=== PATIENT | female | born 1990 | race Caucasian/White ===

== ENCOUNTER 2018-06-29 16:10 | Inpatient (IN) | payer MEDICAID, OTHER ==
[2018-06-29] MEDS: morphine 4 MG/ML VIAL IV (17:43)
[2018-06-29] MEDS: ONDANSETRON 4 MG INJ IV (17:43)
[2018-06-29] MEDS: FAMOTIDINE 20 MG INJ IV (17:43)
[2018-06-29 17:47] LABS: ADD MAN DIFF? NO
[2018-06-29 17:56] LABS: WHITE BLOOD COUNT 5.5 10^3/ul (4.8-10.8)
[2018-06-29 17:56] LABS: BASOPHILS % 0.4 % (0.0-2.0); EOSINOPHILS % 0.5 % (0.0-7.0); HEMATOCRIT 41.7 % (37.0-47.0); HEMOGLOBIN 13.9 g/dl (12.0-16.0); LYMPHOCYTES # 1.7 10^3/ul (0.8-2.9); LYMPHOCYTES % 31.9 % (15.0-51.0); MEAN CORPUSCULAR HEMOGLOBIN 29.4 pg (29.0-33.0); MEAN CORPUSCULAR HGB CONC 33.3 g/dl (32.0-37.0); MEAN CORPUSCULAR VOLUME 88.3 fl (82.0-101.0); MEAN PLATELET VOLUME 9.3 fl (7.4-10.4); MONOCYTE # 0.6 10^3/ul (0.3-0.9); MONOCYTES % 11.7 % (0.0-11.0); NEUTROPHILS % 55.1 % (39.0-77.0); PLATELET COUNT 282 10^3/UL (140-415); RED BLOOD COUNT 4.72 10^6/ul (4.20-5.40); RED CELL DISTRIBUTION WIDTH 12.4 % (11.5-14.5)
[2018-06-29 18:00] LABS: ADD UMIC NO; UR ASCORBIC ACID NEGATIVE (NEGATIVE); UR BACTERIA FEW /HPF (NONE SEEN); UR BILIRUBIN (Dip) NEGATIVE (NEGATIVE); UR BLOOD (Dip) NEGATIVE (NEGATIVE); UR CLARITY SLIGHTLY CLOUDY (CLEAR); UR COLOR YELLOW (YELLOW); UR GLUCOSE (Dip) NEGATIVE (NEGATIVE); UR KETONES (Dip) 1+ mg/dL (NEGATIVE); UR LEUKOCYTE ESTERASE (Dip) NEGATIVE Leu/ul (NEGATIVE); UR NITRITE (Dip) NEGATIVE (NEGATIVE); UR RBC 6 /HPF (0-5); UR SQUAMOUS EPITHELIAL CELL MODERATE /HPF (FEW); UR TOTAL PROTEIN (Dip) NEGATIVE (NEGATIVE); UR UROBILINOGEN (Dip) NEGATIVE (NEGATIVE); UR WBC 2 /HPF (0-5)
[2018-06-29 18:21] LABS: ALANINE AMINOTRANSFERASE 546 IU/L (13-69); ALBUMIN 4.8 g/dl (3.3-4.9); ALBUMIN/GLOBULIN RATIO 1.06; ALKALINE PHOSPHATASE 98 IU/L (42-121); ANION GAP 13 (5-13); ASPARTATE AMINO TRANSFERASE 410 IU/L (15-46); BILIRUBIN,INDIRECT 0.4 mg/dl (0-1.1); BILIRUBIN,TOTAL 0.4 mg/dl (0.2-1.3); BLOOD UREA NITROGEN 9 mg/dl (7-20); CALCIUM 10.2 mg/dl (8.4-10.2); CARBON DIOXIDE 25 mmol/L (21-31); CHLORIDE 102 mmol/L (97-110); CREATININE 0.67 mg/dl (0.44-1.00); Estimated GFR > 60 mL/min (>60); GLUCOSE 89 mg/dl (70-220); LIPASE 82 U/L (23-300); POTASSIUM 4.3 mmol/L (3.5-5.1); SODIUM 140 mmol/L (135-144); TOTAL PROTEIN 9.3 g/dl (6.1-8.1)
[2018-06-29] MEDS: SOD CHLORIDE 0.9% 100 ML (19:58)
[2018-06-29] MEDS: IOHEXOL 300MG/ML 150 ML BTL (19:58)
[2018-06-29] MEDS: SOD CHLORIDE 0.9% 1,000 ML IV ×2 (21:03→23:41)
[2018-06-29] MEDS: morphine 2 MG INJ IV (21:03)
[2018-06-29] MEDS: PIPER-TAZO 3.375 GM IV (PMX) 100 ML IVPB (21:10)
[2018-06-29] MEDS ORDERED: KETOROLAC 30 MG INJ IV (21:30)
[2018-06-29] MEDS: CIPROFLOXACIN 400MG/D5W 200 ML IVPB (21:41)
[2018-06-29] MEDS ORDERED: BISACODYL (EC) 5 MG TAB PO (22:00)
[2018-06-29] MEDS ORDERED: NACL 0.9% 3 ML SYG IV (22:00)
[2018-06-29] MEDS ORDERED: DOCUSATE SODIUM 100 MG CAP PO (22:00)
[2018-06-29] MEDS: metroNIDAZOLE 500 MG/NS (PMX) 100 ML IVPB (23:42)
[2018-06-30] MEDS: SOD CHLORIDE 0.9% 1,000 ML IV ×2 (01:36→14:05)
[2018-06-30] MEDS: SUCRALFATE 1 GM TAB PO ×3 (01:36→17:03)
[2018-06-30] MEDS: ACETAMINOPHEN 325 MG TAB PO (01:36)
[2018-06-30 05:04] LABS: ADD MAN DIFF? NO; HAAIG REFLEX REFLEX FILED
[2018-06-30 05:07] LABS: BASOPHILS % 0.6 % (0.0-2.0); EOSINOPHILS # 0.1 10^3/ul (0.0-0.5); EOSINOPHILS % 1.9 % (0.0-7.0); HEMATOCRIT 37.7 % (37.0-47.0); HEMOGLOBIN 12.3 g/dl (12.0-16.0); LYMPHOCYTES # 1.9 10^3/ul (0.8-2.9); LYMPHOCYTES % 39.4 % (15.0-51.0); MEAN CORPUSCULAR HEMOGLOBIN 28.9 pg (29.0-33.0); MEAN CORPUSCULAR HGB CONC 32.6 g/dl (32.0-37.0); MEAN CORPUSCULAR VOLUME 88.7 fl (82.0-101.0); MEAN PLATELET VOLUME 9.1 fl (7.4-10.4); MONOCYTE # 0.8 10^3/ul (0.3-0.9); MONOCYTES % 16.8 % (0.0-11.0); NEUTROPHIL # 1.9 10^3/ul (1.6-7.5); NEUTROPHILS % 41.1 % (39.0-77.0); PLATELET COUNT 249 10^3/UL (140-415); RED BLOOD COUNT 4.25 10^6/ul (4.20-5.40); RED CELL DISTRIBUTION WIDTH 12.5 % (11.5-14.5)
[2018-06-30 05:07] LABS: WHITE BLOOD COUNT 4.7 10^3/ul (4.8-10.8)
[2018-06-30 05:26] LABS: ALANINE AMINOTRANSFERASE 431 IU/L (13-69); ALBUMIN 3.8 g/dl (3.3-4.9); ALBUMIN/GLOBULIN RATIO 1.11; ALKALINE PHOSPHATASE 73 IU/L (42-121); ANION GAP 8 (5-13); ASPARTATE AMINO TRANSFERASE 306 IU/L (15-46); BILIRUBIN,INDIRECT 0.4 mg/dl (0-1.1); BILIRUBIN,TOTAL 0.4 mg/dl (0.2-1.3); BLOOD UREA NITROGEN 8 mg/dl (7-20); CARBON DIOXIDE 25 mmol/L (21-31); CHLORIDE 107 mmol/L (97-110); CHOL/HDL RATIO 2.3 RATIO; CHOLESTEROL 124 mg/dl (100-200); CREATININE 0.67 mg/dl (0.44-1.00); Estimated GFR > 60 mL/min (>60); GLUCOSE 76 mg/dl (70-220); HDL CHOLESTEROL 53 mg/dl (33-83); LDL CHOLESTEROL,CALCULATED 58 mg/dl; MAGNESIUM 2.1 mg/dl (1.7-2.5); POTASSIUM 4.1 mmol/L (3.5-5.1); SODIUM 140 mmol/L (135-144); TOTAL PROTEIN 7.2 g/dl (6.1-8.1); TRIGLYCERIDES 63 mg/dl (0-149)
[2018-06-30] MEDS: metroNIDAZOLE 500 MG/NS (PMX) 100 ML IVPB ×5 (05:53→23:53)
[2018-06-30] MEDS: PANTOPRAZOLE 40 MG INJ IV (05:53)
[2018-06-30 05:57] LABS: HEMOGLOBIN A1C 4.9 % (0-5.9)
[2018-06-30] MEDS: HYDROmorphONE 0.5 MG/0.5 ML SYG IV ×3 (05:59→17:03)
[2018-06-30 07:19] LABS: HEPATITIS B SURFACE ANTIGEN NEGATIVE (NEGATIVE)
[2018-06-30 07:37] LABS: HEPATITIS B CORE ANTIBODY NEGATIVE (NEGATIVE); HEPATITIS C VIRAL ANTIBODY NEGATIVE (NEGATIVE)
[2018-06-30] MEDS: CIPROFLOXACIN 400MG/D5W 200 ML IVPB ×2 (08:06→21:10)
[2018-06-30] MEDS: ONDANSETRON 4 MG INJ IV ×3 (08:06→17:04)
[2018-06-30] MEDS: ASA/ACETAMINOPHEN/CAFF TAB PO (09:45)
[2018-07-01] MEDS: SUCRALFATE 1 GM TAB PO
[2018-07-01] MEDS: SOD CHLORIDE 0.9% 1,000 ML IV ×3 (00:55→19:20)
[2018-07-01 05:30] LABS: ADD MAN DIFF? NO
[2018-07-01 05:36] LABS: BASOPHIL # 0.1 10^3/ul (0.0-0.1); BASOPHILS % 1.2 % (0.0-2.0); EOSINOPHILS # 0.1 10^3/ul (0.0-0.5); EOSINOPHILS % 2.3 % (0.0-7.0); HEMATOCRIT 36.7 % (37.0-47.0); HEMOGLOBIN 12.4 g/dl (12.0-16.0); LYMPHOCYTES # 1.4 10^3/ul (0.8-2.9); LYMPHOCYTES % 32.6 % (15.0-51.0); MEAN CORPUSCULAR HEMOGLOBIN 29.3 pg (29.0-33.0); MEAN CORPUSCULAR HGB CONC 33.8 g/dl (32.0-37.0); MEAN CORPUSCULAR VOLUME 86.8 fl (82.0-101.0); MEAN PLATELET VOLUME 9.4 fl (7.4-10.4); MONOCYTE # 0.8 10^3/ul (0.3-0.9); MONOCYTES % 17.9 % (0.0-11.0); NEUTROPHILS % 45.8 % (39.0-77.0); PLATELET COUNT 238 10^3/UL (140-415); RED BLOOD COUNT 4.23 10^6/ul (4.20-5.40); RED CELL DISTRIBUTION WIDTH 12.6 % (11.5-14.5)
[2018-07-01 05:36] LABS: WHITE BLOOD COUNT 4.3 10^3/ul (4.8-10.8)
[2018-07-01] MEDS: metroNIDAZOLE 500 MG/NS (PMX) 100 ML IVPB ×3 (06:00→18:24)
[2018-07-01 06:01] LABS: PHOSPHORUS 4.4 mg/dl (2.5-4.9)
[2018-07-01 06:01] LABS: MAGNESIUM 1.8 mg/dl (1.7-2.5)
[2018-07-01 06:11] LABS: ALANINE AMINOTRANSFERASE 409 IU/L (13-69); ALBUMIN 3.6 g/dl (3.3-4.9); ALKALINE PHOSPHATASE 66 IU/L (42-121); ANION GAP 9 (5-13); ASPARTATE AMINO TRANSFERASE 255 IU/L (15-46); BILIRUBIN,INDIRECT 0.6 mg/dl (0-1.1); BILIRUBIN,TOTAL 0.6 mg/dl (0.2-1.3); BLOOD UREA NITROGEN 6 mg/dl (7-20); CALCIUM 8.9 mg/dl (8.4-10.2); CARBON DIOXIDE 25 mmol/L (21-31); CHLORIDE 105 mmol/L (97-110); CREATININE 0.69 mg/dl (0.44-1.00); Estimated GFR > 60 mL/min (>60); GLUCOSE 74 mg/dl (70-220); POTASSIUM 4.3 mmol/L (3.5-5.1); SODIUM 139 mmol/L (135-144); TOTAL PROTEIN 7.2 g/dl (6.1-8.1)
[2018-07-01] MEDS: PANTOPRAZOLE 40 MG INJ IV (06:15)
[2018-07-01] MEDS ORDERED: NEOSTIGMINE 10 MG INJ (07:00)
[2018-07-01] MEDS ORDERED: CIPRO 400 MG/200 ML D5W IVPB (07:00)
[2018-07-01] MEDS ORDERED: metroNIDAZOLE 500 MG/100 ML NS IVPB (07:00)
[2018-07-01] MEDS ORDERED: ALBUTEROL 0.083% (NEB) 2.5 MG/3 ML AMP HHN (07:30)
[2018-07-01] MEDS ORDERED: HYDROmorphONE 1 MG/5 ML IV SYRINGE IV (07:30)
[2018-07-01] MEDS ORDERED: GLYCOPYRROLATE 0.4 MG INJ (07:30)
[2018-07-01] MEDS ORDERED: EPHEDrine SULFATE 50 MG/5 ML SYG IV (07:30)
[2018-07-01] MEDS ORDERED: LABETALOL HCL 20MG INJ IV (07:30)
[2018-07-01] MEDS ORDERED: TRIMETHOBENZAMIDE 100 MG/ML VIAL IM (07:30)
[2018-07-01] MEDS ORDERED: ROCURONIUM 50 MG INJ (07:30)
[2018-07-01] MEDS ORDERED: DIPHENHYDRAMINE 50 MG INJ IV (07:30)
[2018-07-01] MEDS ORDERED: CEFAZOLIN 1 GM INJ (07:30)
[2018-07-01] MEDS ORDERED: MIDAZOLAM 1 MG/ML 2 ML INJ IV (07:30)
[2018-07-01] MEDS ORDERED: FENTAnyl 50 MCG/ML VIAL IV ×3 (07:30)
[2018-07-01] MEDS ORDERED: hydrALAzine 20 MG INJ IV (07:30)
[2018-07-01] MEDS ORDERED: PROPOFOL 20 ML (07:30)
[2018-07-01] MEDS ORDERED: OXYCODONE/ACETAMINOPHEN (5/325) TAB PO ×2 (07:30)
[2018-07-01] MEDS ORDERED: IPRATROPIUM (NEB) 0.5 MG/2.5 ML AMP HHN (07:30)
[2018-07-01] MEDS ORDERED: FENTAnyl 50 MCG/ML VIAL ×2 (07:32→08:11)
[2018-07-01] MEDS ORDERED: MIDAZOLAM 1 MG/ML 2 ML INJ (07:32)
[2018-07-01] MEDS ORDERED: ONDANSETRON 4 MG INJ (07:33)
[2018-07-01] MEDS ORDERED: DEXAMETHASONE 4 MG/ML 5 ML INJ (07:33)
[2018-07-01] MEDS ORDERED: ROPIVACAINE 0.5 % 30 ML VIAL (07:33)
[2018-07-01] MEDS: BUPIVACAINE 0.5%/EPI (SDV) 30 ML INJ (08:19)
[2018-07-01] MEDS: LIDOCAINE 2% (MDV) 20 ML INJ (08:20)
[2018-07-01] MEDS: CIPROFLOXACIN 400MG/D5W 200 ML IVPB ×2 (09:00→21:37)
[2018-07-01] MEDS: ONDANSETRON 4 MG INJ IV ×2 (09:40→12:13)
[2018-07-01] MEDS: MEPERIDINE 25 MG INJ IV (09:40)
[2018-07-01] MEDS: HYDROmorphONE 1 MG/5 ML IV SYRINGE IV ×2 (09:41→09:49)
[2018-07-01] MEDS: D5W-0.45 NACL + KCL 20 MEQ 1,000 ML IV ×2 (10:57→22:01)
[2018-07-01] MEDS: IBUPROFEN 600 MG TAB PO ×2 (12:13→18:24)
[2018-07-01] MEDS: HYDROmorphONE 0.5 MG/0.5 ML SYG IV ×3 (14:16→22:26)
[2018-07-01] MEDS: ACETAMINOPHEN 325 MG TAB PO (16:03)
[2018-07-02] MEDS: metroNIDAZOLE 500 MG/NS (PMX) 100 ML IVPB ×3 (00:57→12:00)
[2018-07-02] MEDS: morphine 4 MG/ML VIAL IV ×3 (01:10→11:02)
[2018-07-02] MEDS: SOD CHLORIDE 0.9% 1,000 ML IV ×2 (01:10→12:00)
[2018-07-02] MEDS: IBUPROFEN 600 MG TAB PO (01:11)
[2018-07-02 05:17] LABS: ADD MAN DIFF? NO
[2018-07-02 05:22] LABS: BASOPHILS % 0.2 % (0.0-2.0); HEMATOCRIT 35.5 % (37.0-47.0); HEMOGLOBIN 12.2 g/dl (12.0-16.0); LYMPHOCYTES # 1.8 10^3/ul (0.8-2.9); LYMPHOCYTES % 14.4 % (15.0-51.0); MEAN CORPUSCULAR HEMOGLOBIN 29.8 pg (29.0-33.0); MEAN CORPUSCULAR HGB CONC 34.4 g/dl (32.0-37.0); MEAN CORPUSCULAR VOLUME 86.8 fl (82.0-101.0); MEAN PLATELET VOLUME 9.6 fl (7.4-10.4); MONOCYTE # 1.4 10^3/ul (0.3-0.9); MONOCYTES % 11.3 % (0.0-11.0); NEUTROPHIL # 9.4 10^3/ul (1.6-7.5); NEUTROPHILS % 73.5 % (39.0-77.0); PLATELET COUNT 239 10^3/UL (140-415); RED BLOOD COUNT 4.09 10^6/ul (4.20-5.40); RED CELL DISTRIBUTION WIDTH 12.6 % (11.5-14.5)
[2018-07-02 05:22] LABS: WHITE BLOOD COUNT 12.7 10^3/ul (4.8-10.8)
[2018-07-02] MEDS: D5W-0.45 NACL + KCL 20 MEQ 1,000 ML IV ×2 (05:39→15:47)
[2018-07-02] MEDS: PANTOPRAZOLE 40 MG INJ IV (05:39)
[2018-07-02 06:06] LABS: PHOSPHORUS 3.9 mg/dl (2.5-4.9)
[2018-07-02 06:06] LABS: MAGNESIUM 1.8 mg/dl (1.7-2.5)
[2018-07-02 06:18] LABS: ALANINE AMINOTRANSFERASE 329 IU/L (13-69); ALBUMIN 3.3 g/dl (3.3-4.9); ALKALINE PHOSPHATASE 59 IU/L (42-121); ANION GAP 8 (5-13); ASPARTATE AMINO TRANSFERASE 168 IU/L (15-46); BILIRUBIN,INDIRECT 0.2 mg/dl (0-1.1); BILIRUBIN,TOTAL 0.2 mg/dl (0.2-1.3); BLOOD UREA NITROGEN 6 mg/dl (7-20); CARBON DIOXIDE 25 mmol/L (21-31); CHLORIDE 107 mmol/L (97-110); CREATININE 0.69 mg/dl (0.44-1.00); Estimated GFR > 60 mL/min (>60); GLUCOSE 140 mg/dl (70-220); POTASSIUM 4.1 mmol/L (3.5-5.1); SODIUM 140 mmol/L (135-144); TOTAL PROTEIN 6.6 g/dl (6.1-8.1)
[2018-07-02] MEDS: ENOXAPARIN 30 MG/0.3 ML SYG SC (06:25)
[2018-07-02] MEDS: CIPROFLOXACIN 400MG/D5W 200 ML IVPB (08:56)
[2018-07-02] MEDS: DIPHENHYDRAMINE 50 MG INJ IV (12:23)
== END 2018-07-02 16:45 | disposition home or self-care (01) | DRG 419 ==
LOC: FTE 16:10 → MS1 21:29
PROC: 0FT44ZZ Resection of Gallbladder, Percutaneous Endoscopic Approach (ICD-10-PCS; principal; 2018-07-01 07:30)
DX: K80.00 Calculus of gallbladder with acute cholecystitis without obstruction (principal); E66.9 Obesity, unspecified; E11.9 Type 2 diabetes mellitus without complications; G43.909 Migraine, unspecified, not intractable, without status migrainosus; Z68.29 Body mass index [BMI] 29.0-29.9, adult
CPT/HCPCS: 36415; 74177; 74181; 76705; 80053; 80061; 81001; 81003; 81025; 83036; 83690; 83735; 84100; 84443; 85025; 86704; 86709; 86803; 87340; 88304; 96374; 96375; 96376; 99285-25

== ENCOUNTER 2018-07-09 07:55 | Inpatient (IN) | payer MEDICAID ==
[2018-07-09] MEDS ORDERED: morphine 4 MG/ML VIAL IM (08:40)
[2018-07-09] MEDS ORDERED: ONDANSETRON (ODT) 4 MG TAB ODT (08:40)
[2018-07-09 08:50] LABS: URINE BLOOD (Dip) POC Trace-intact (NEGATIVE); URINE GLUCOSE (Dip) POC Negative (NEGATIVE); URINE KETONES (Dip) POC Negative (NEGATIVE); URINE LEUKOCYTE EST (Dip) POC Trace (NEGATIVE); URINE NITRITE (Dip) POC Negative (NEGATIVE); URINE TOTAL PROTEIN POC Negative (NEGATIVE)
[2018-07-09 08:50] LABS: URINE PH (Dip) POC 5.5 (5.0-8.5)
[2018-07-09] MEDS: morphine 4 MG/ML VIAL IV ×2 (09:05→12:06)
[2018-07-09] MEDS: SOD CHLORIDE 0.9% 1,000 ML IV (09:05)
[2018-07-09] MEDS: ONDANSETRON 4 MG INJ IV ×2 (09:06→20:58)
[2018-07-09 09:08] LABS: ADD MAN DIFF? NO
[2018-07-09 09:12] LABS: WHITE BLOOD COUNT 5.5 10^3/ul (4.8-10.8)
[2018-07-09 09:12] LABS: BASOPHILS % 0.5 % (0.0-2.0); EOSINOPHILS # 0.1 10^3/ul (0.0-0.5); EOSINOPHILS % 1.6 % (0.0-7.0); HEMATOCRIT 43.5 % (37.0-47.0); HEMOGLOBIN 14.6 g/dl (12.0-16.0); LYMPHOCYTES # 1.9 10^3/ul (0.8-2.9); LYMPHOCYTES % 33.8 % (15.0-51.0); MEAN CORPUSCULAR HEMOGLOBIN 29.6 pg (29.0-33.0); MEAN CORPUSCULAR HGB CONC 33.6 g/dl (32.0-37.0); MEAN CORPUSCULAR VOLUME 88.2 fl (82.0-101.0); MEAN PLATELET VOLUME 9.3 fl (7.4-10.4); MONOCYTE # 0.8 10^3/ul (0.3-0.9); MONOCYTES % 14.1 % (0.0-11.0); NEUTROPHIL # 2.7 10^3/ul (1.6-7.5); NEUTROPHILS % 49.6 % (39.0-77.0); PLATELET COUNT 257 10^3/UL (140-415); RED BLOOD COUNT 4.93 10^6/ul (4.20-5.40); RED CELL DISTRIBUTION WIDTH 12.6 % (11.5-14.5)
[2018-07-09 09:36] LABS: ALANINE AMINOTRANSFERASE 455 IU/L (13-69); ALBUMIN 4.4 g/dl (3.3-4.9); ALBUMIN/GLOBULIN RATIO 1.04; ALKALINE PHOSPHATASE 82 IU/L (42-121); ANION GAP 12 (5-13); ASPARTATE AMINO TRANSFERASE 315 IU/L (15-46); BILIRUBIN,INDIRECT 0.5 mg/dl (0-1.1); BILIRUBIN,TOTAL 0.5 mg/dl (0.2-1.3); BLOOD UREA NITROGEN 14 mg/dl (7-20); CALCIUM 9.6 mg/dl (8.4-10.2); CARBON DIOXIDE 23 mmol/L (21-31); CHLORIDE 106 mmol/L (97-110); Estimated GFR > 60 mL/min (>60); GLUCOSE 104 mg/dl (70-220); LIPASE 85 U/L (23-300); POTASSIUM 4.2 mmol/L (3.5-5.1); SODIUM 141 mmol/L (135-144); TOTAL PROTEIN 8.6 g/dl (6.1-8.1)
[2018-07-09] MEDS: SOD CHLORIDE 0.9% 100 ML (10:32)
[2018-07-09] MEDS: IOHEXOL 300MG/ML 150 ML BTL (10:32)
[2018-07-09] MEDS ORDERED: ACETAMINOPHEN 325 MG TAB PO (12:30)
[2018-07-09] MEDS ORDERED: ONDANSETRON 4 MG INJ IV (12:30)
[2018-07-09] MEDS ORDERED: NACL 0.9% 3 ML SYG IV (13:30)
[2018-07-09] MEDS ORDERED: PIPER-TAZO 3.375 GM IV (PMX) 100 ML IVPB (13:30)
[2018-07-09 14:20] LABS: AMYLASE 43 U/L (11-123)
[2018-07-09 14:35] LABS: ADD UMIC YES; UR ASCORBIC ACID NEGATIVE (NEGATIVE); UR BACTERIA FEW /HPF (NONE SEEN); UR BILIRUBIN (Dip) NEGATIVE (NEGATIVE); UR BLOOD (Dip) NEGATIVE (NEGATIVE); UR CLARITY SLIGHTLY CLOUDY (CLEAR); UR COLOR YELLOW (YELLOW); UR GLUCOSE (Dip) NEGATIVE (NEGATIVE); UR KETONES (Dip) NEGATIVE (NEGATIVE); UR LEUKOCYTE ESTERASE (Dip) 1+ Leu/ul (NEGATIVE); UR MUCUS FEW /HPF (NONE SEEN); UR NITRITE (Dip) NEGATIVE (NEGATIVE); UR RBC 4 /HPF (0-5); UR SPECIFIC GRAVITY (Dip) 1.028 (1.003-1.030); UR SQUAMOUS EPITHELIAL CELL FEW /HPF (FEW); UR TOTAL PROTEIN (Dip) NEGATIVE (NEGATIVE); UR UROBILINOGEN (Dip) NEGATIVE (NEGATIVE); UR WBC 4 /HPF (0-5)
[2018-07-09] MEDS: CIPROFLOXACIN 400 MG in D5W 200 ML IVPB ×2 (15:42→23:27)
[2018-07-09] MEDS: Metronidazole 500 MG in NS 100 ML IVPB ×2 (18:03→22:31)
[2018-07-09] MEDS: DEXTROSE 5%-0.45% NACL 1,000 ML IV (18:04)
[2018-07-09] MEDS: INDOMETHACIN 50 MG SUPP PR (18:30)
[2018-07-09] MEDS: morphine 2 MG INJ IV (19:01)
[2018-07-09] MEDS: MAGNESIUM HYDROXIDE 30ML CUP PO (20:57)
[2018-07-09] MEDS: DOCUSATE SODIUM 100 MG CAP PO (20:57)
[2018-07-09] MEDS ORDERED: DOCUSATE SODIUM 100 MG CAP PO (21:00)
[2018-07-10] MEDS: DEXTROSE 5%-0.45% NACL 1,000 ML IV ×4 (02:30→21:45)
[2018-07-10] MEDS: morphine 2 MG INJ IV ×3 (04:39→21:45)
[2018-07-10 05:13] LABS: WHITE BLOOD COUNT 4.6 10^3/ul (4.8-10.8)
[2018-07-10 05:13] LABS: ADD MAN DIFF? NO; BASOPHILS % 0.4 % (0.0-2.0); EOSINOPHILS # 0.1 10^3/ul (0.0-0.5); EOSINOPHILS % 1.7 % (0.0-7.0); HEMOGLOBIN 13.8 g/dl (12.0-16.0); LYMPHOCYTES # 1.9 10^3/ul (0.8-2.9); LYMPHOCYTES % 41.5 % (15.0-51.0); MEAN CORPUSCULAR HEMOGLOBIN 29.7 pg (29.0-33.0); MEAN CORPUSCULAR HGB CONC 33.7 g/dl (32.0-37.0); MEAN CORPUSCULAR VOLUME 88.2 fl (82.0-101.0); MEAN PLATELET VOLUME 9.2 fl (7.4-10.4); MONOCYTE # 0.8 10^3/ul (0.3-0.9); MONOCYTES % 16.8 % (0.0-11.0); NEUTROPHIL # 1.8 10^3/ul (1.6-7.5); NEUTROPHILS % 39.4 % (39.0-77.0); PLATELET COUNT 261 10^3/UL (140-415); RED BLOOD COUNT 4.65 10^6/ul (4.20-5.40); RED CELL DISTRIBUTION WIDTH 12.5 % (11.5-14.5)
[2018-07-10] MEDS: Metronidazole 500 MG in NS 100 ML IVPB ×3 (05:43→21:44)
[2018-07-10 05:55] LABS: ALANINE AMINOTRANSFERASE 383 IU/L (13-69); ALBUMIN/GLOBULIN RATIO 1.08; ALKALINE PHOSPHATASE 70 IU/L (42-121); ANION GAP 9 (5-13); ASPARTATE AMINO TRANSFERASE 243 IU/L (15-46); BILIRUBIN,INDIRECT 0.8 mg/dl (0-1.1); BILIRUBIN,TOTAL 0.8 mg/dl (0.2-1.3); BLOOD UREA NITROGEN 10 mg/dl (7-20); CALCIUM 9.4 mg/dl (8.4-10.2); CARBON DIOXIDE 24 mmol/L (21-31); CHLORIDE 105 mmol/L (97-110); CREATININE 0.63 mg/dl (0.44-1.00); Estimated GFR > 60 mL/min (>60); GLUCOSE 95 mg/dl (70-220); POTASSIUM 4.2 mmol/L (3.5-5.1); SODIUM 138 mmol/L (135-144); TOTAL PROTEIN 7.7 g/dl (6.1-8.1)
[2018-07-10] MEDS ORDERED: CEFAZOLIN 1 GM INJ (07:00)
[2018-07-10] MEDS ORDERED: SUCCINYLCHOLINE CHLORIDE 100 MG/5 ML SYG IV (07:00)
[2018-07-10] MEDS ORDERED: LIDOCAINE 2% (SDV) 5 ML INJ (07:00)
[2018-07-10] MEDS ORDERED: PROPOFOL 200 MG INJ (07:00)
[2018-07-10] MEDS ORDERED: IOHEXOL 300MG/ML 30 ML BTL (08:26)
[2018-07-10] MEDS: INDOMETHACIN 50 MG SUPP PR (09:00)
[2018-07-10] MEDS ORDERED: MIDAZOLAM 1 MG/ML 2 ML INJ (09:01)
[2018-07-10] MEDS ORDERED: FENTAnyl 50 MCG/ML VIAL (09:01)
[2018-07-10] MEDS ORDERED: ONDANSETRON 4 MG INJ (09:26)
[2018-07-10] MEDS ORDERED: DEXAMETHASONE 4 MG/ML 5 ML INJ (09:26)
[2018-07-10] MEDS ORDERED: ONDANSETRON 4 MG INJ IV (10:00)
[2018-07-10] MEDS ORDERED: FENTAnyl 50 MCG/ML VIAL IV ×2 (10:00)
[2018-07-10 11:34] LABS: HAAIG REFLEX REFLEX FILED
[2018-07-10 11:52] LABS: IRON 215 ug/dl (35-150)
[2018-07-10 12:01] LABS: % IRON SATURATION 64 % SAT (22-52); TOTAL IRON BINDING CAPACITY 336 ug/dl (241-421)
[2018-07-10 12:26] LABS: HEPATITIS B SURFACE ANTIGEN NEGATIVE (NEGATIVE)
[2018-07-10 12:43] LABS: HEPATITIS B CORE ANTIBODY NEGATIVE (NEGATIVE); HEPATITIS C VIRAL ANTIBODY NEGATIVE (NEGATIVE)
[2018-07-10] MEDS: DOCUSATE SODIUM 100 MG CAP PO ×2 (13:06→20:14)
[2018-07-10] MEDS: CIPROFLOXACIN 400 MG in D5W 200 ML IVPB ×2 (13:07→20:13)
[2018-07-10] MEDS: MAGNESIUM HYDROXIDE 30ML CUP PO ×2 (13:07→20:14)
[2018-07-10] MEDS: KETOROLAC 15 MG INJ IV (17:20)
[2018-07-11] MEDS: Metronidazole 500 MG in NS 100 ML IVPB (05:29)
[2018-07-11 06:56] LABS: ALANINE AMINOTRANSFERASE 291 IU/L (13-69); ALBUMIN 3.6 g/dl (3.3-4.9); ALBUMIN/GLOBULIN RATIO 1.05; ALKALINE PHOSPHATASE 67 IU/L (42-121); ANION GAP 8 (5-13); ASPARTATE AMINO TRANSFERASE 131 IU/L (15-46); BILIRUBIN,INDIRECT 0.7 mg/dl (0-1.1); BILIRUBIN,TOTAL 0.7 mg/dl (0.2-1.3); BLOOD UREA NITROGEN 9 mg/dl (7-20); CARBON DIOXIDE 21 mmol/L (21-31); CHLORIDE 109 mmol/L (97-110); CREATININE 0.54 mg/dl (0.44-1.00); Estimated GFR > 60 mL/min (>60); GLUCOSE 130 mg/dl (70-220); SODIUM 138 mmol/L (135-144)
[2018-07-11] MEDS: DEXTROSE 5%-0.45% NACL 1,000 ML IV ×2 (08:30→08:37)
[2018-07-11] MEDS: CIPROFLOXACIN 400 MG in D5W 200 ML IVPB (08:37)
[2018-07-11] MEDS: MAGNESIUM HYDROXIDE 30ML CUP PO (08:38)
[2018-07-11] MEDS: DOCUSATE SODIUM 100 MG CAP PO (08:38)
[2018-07-11] MEDS: morphine 2 MG INJ IV (08:42)
[2018-07-12 19:16] LABS: ANA SCREEN POSITIVE (NEGATIVE)
[2018-07-12 20:06] LABS: ANA PATTERN HOMOGENEOUS
[2018-07-13 11:32] LABS: MITOCHONDRIAL TB NEGATIVE (NEGATIVE); SMOOTH MUSCLE AB SCREEN NEGATIVE (NEGATIVE)
[2018-07-13 14:42] LABS: CERULOPLASMIN 32 mg/dL (18-53)
== END 2018-07-11 13:25 | disposition home or self-care (01) | DRG 446 ==
LOC: FTE 07:55 → 2NE 12:14
PROC: 0FC98ZZ Extirpation of Matter from Common Bile Duct, Via Natural or Artificial Opening Endoscopic (ICD-10-PCS; principal; 2018-07-10 09:00)
PROC: BF101ZZ Fluoroscopy of Bile Ducts using Low Osmolar Contrast (ICD-10-PCS; 2018-07-10 09:00)
DX: K83.8 Other specified diseases of biliary tract (principal); K59.00 Constipation, unspecified; R94.5 Abnormal results of liver function studies; E66.9 Obesity, unspecified; Z68.28 Body mass index [BMI] 28.0-28.9, adult
CPT/HCPCS: 74177; 74330; 78226; 80053; 81001; 81003; 81025; 82150; 82390; 82728; 83540; 83690; 83735; 84100; 85025; 86038; 86255; 86704; 86709; 86803; 87081; 87086; 87340; 96361; 96374; 96375; 96376; 99285-25